=== PATIENT | male | born 1980 | race Caucasian/White ===

== ENCOUNTER 2019-08-28 14:16 | Emergency (ER) | payer OTHER ==
[2019-08-28 14:46] VITALS: BP 147/91; PULSE 91
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
== END 2019-08-28 15:00 | disposition home or self-care (01) ==
LOC: LB.ED 14:16
DX: S80.811A Abrasion, right lower leg, initial encounter (principal); I10 Essential (primary) hypertension; V48.5XXA Car driver injured in noncollision transport accident in traffic accident, initial encounter; Y92.410 Unspecified street and highway as the place of occurrence of the external cause
CPT/HCPCS: 99282; 99284